=== PATIENT | male | born 1980 | race African-American/Black ===

== ENCOUNTER 2019-05-27 13:15 | Emergency (ER) | payer OTHER ==
[~2019-05-27] VITALS: Ht 180.3 cm; Wt 108.9 kg
[2019-05-27 13:50] LABS: BASOPHILS 0.5 % (0.0-2.0); EOSINOPHILS 0.1 % (0.0-3.0); HEMATOCRIT 46.2 % (42.0-52.0); LYMPHOCYTES 9.4 % (24.0-44.0); MCH 27.6 pg (26.0-34.0); MCHC 32.4 g/dL (28.0-37.0); MCV 85.2 fL (80.0-100.0); MONOCYTES 6.8 % (1.0-8.0); PLATELET COUNT 215 thou/uL (150-400); POLYS 83.2 % (36.0-66.0); RBC 5.42 mil/uL (4.50-6.00); RDW 14.4 % (10.5-14.5)
[2019-05-27 13:57] LABS: ANION GAP 8 mmol/L (7-16); BUN 8 mg/dL (7-18); CALCIUM 9.7 mg/dL (8.5-10.1); CHLORIDE 101 mmol/L (98-107); CO2 31 mmol/L (21-32); CREATININE 1.1 mg/dL (0.7-1.3); GLUCOSE 98 mg/dL (74-106); POTASSIUM 3.8 mmol/L (3.5-5.1); SODIUM 140 mmol/L (136-145)
[2019-05-27 14:04] LABS: APTT 31.6 Seconds (24.5-32.8); INR 1.1; PROTIME 11.4 Seconds (9.3-11.4)
[2019-05-27 14:08] LABS: ALBUMIN 4.3 g/dL (3.4-5.0); SGOT 15 U/L (15-37); SGPT 26 U/L (30-65); TOTAL BILIRUBIN 0.7 mg/dL (<0.1-1.0); TOTAL PROTEIN 8.1 g/dL (6.4-8.2); TROPONIN-I <0.06 ng/mL (<0.06)
[2019-05-27] MEDS ORDERED: IBUPROFEN 800800 MG PO (16:20)
[2019-05-27 16:27] VITALS: BP 130/61
--- NOTE | 2019-05-28 11:51 | EKG ---
[address] [place] [address] ELECTROCARDIOGRAM REPORT Name: MARIA ESTHER DENSON Room #: DEP FAY Weber#: [id number] ������������������ Admission: 05/27/19 ������������������ Attend Phys: Discharge: 05/27/19 ������������������ Date of : 84 Report #: [id number] ����������������������������������������������������������������� [id number] THIS REPORT FOR: //name// [facility] ED Test Date: 2019-05-27 Test Time: 13:21:37 Pat Name: MARIA ESTHER DENSON Department: Room: Gender: Certified Substance Abuse Counselor: : 1980 Requested By: Rosa Malhotra Order Number: [id number] MD: Lester Ascencio Measurements Intervals [place] Rate: 85 P: 66 NC: 142 QRS: 45 QRSD: 94 T: -10 QT: 340 QTc: 405 Interpretive Statements Sinus rhythm Nonspecific ST and T wave abnormality No previous ECG available for comparison Electronically Signed On 05-28-2019 11:51:23 CDT by Lester Ascencio [email or web address] ��������������������������������������������� <ELECTRONICALLY SIGNED> ���������������������������������������� By: Lester Ascencio MD, [facility] ��������������������������������������������� 05/28/19 1151 1321 1321 Lester Ascencio MD, FACC /EPI
== END 2019-05-27 16:30 | disposition home or self-care (01) ==
LOC: ER 13:15
PROVIDERS: Emergency Medicine Emergency Medical Services
DX: F43.9 Reaction to severe stress, unspecified (principal); R07.89 Other chest pain; R51 Headache; Z98.890 Other specified postprocedural states; Z77.22 Contact with and (suspected) exposure to environmental tobacco smoke (acute) (chronic)